=== PATIENT | female | born 1965 | race Caucasian/White ===

== ENCOUNTER 2025-06-08 12:23 | Emergency (ER) | payer OTHER ==
[~2025-06-08] VITALS: Ht 172.7 cm; Wt 78.0 kg
[2025-06-08 12:33] VITALS: TEMP 96.3
--- NOTE | 2025-06-08 12:33 | Physician Documentation ---
History of Present Illness ~ Stated Complaint: CHEST TIGHTNESS Time Seen by MD: 13:07 [facility] 60 year old female with a history of hypertension and anxiety who presents to the emergency department today for chest pain. She reports this radiates into the left shoulder, but denies nausea, vomiting, diaphoresis. Denies dyspnea, but "I'm more aware of my breathing." Does appear anxious on initial exam. Medication Reconciliation Allergies: Coded Allergies: No Known Allergies (Unverified , 06/08/25) Scheduled Omeprazole (Prilosec), 1 CAP PO DAILY Review of Systems ROS As stated above in the HPI, otherwise all systems are reviewed and negative. Physical Exam Physical Exam General: Alert, appears anxious. HEENT: PERRL, EOMI, no injection, moist mucous membranes. Neck: Full range of motion. Respiratory: Lungs clear, no respiratory distress. Chest: No accessory muscle use. Cardiovascular: Regular rate and rhythm, no murmurs. Gastrointestinal: Soft, nontender, nondistended. Bowels sounds present. Extremities: Normal range of motion, no deformity. Neurologic: Oriented x4. Psychiatric: Normal mood and affect. Skin: Normal color, warm and dry. No edema, no ecchymosis. Progress Progress Note 1410: Re-evaluation. Patient reports feeling somewhat better, but does note that she has persistent burning and tightness in her throat. GI cocktail ordered. Discussed waiting for 2nd trop, 1st was negative. Patient agreeable. 1615: Final reevaluation after three negative trops and GI cocktail. Patient reports further improvement and is comfortable with d/c plan to see PCP and request cardiac referral for further evaluation. Results/Orders Results/Orders Orders - BRIANA AUGUSTIN EARRING [employer]ER Chest,Single View (06/08/25 12:26) Completed Orders - BRIANA AUGUSTIN [employer]ING [employer] Cbc/Diff (06/08/25 12:26) MG (06/08/25 12:26) PBNP (06/08/25 12:26) Chest,Single View (06/08/25 12:26) Electrocardiogram (06/08/25 12:26) BMP (06/08/25 12:26) Hs Troponin I W Calculations (06/08/25 12:26) Hs Troponin I W Calculations (06/08/25 14:26) Hs Troponin I W Calculations (06/08/25 15:26) Lorazepam Tablet (Ativan Tablet) (06/08/25 13:10) Lidocaine 2% Viscous (Xylocaine 2% Visco (06/08/25 14:20) Mag & Alum Hydrox/Simeth Susp (Maalox Or (06/08/25 14:20) Lidocaine 2% Viscous (Xylocaine 2% Visco (06/08/25 14:20) Medications Received in ER Medications (Trade) Dose Ordered Sig/Nilsa Route PRN Reason Start Time Stop Time Status Last Admin Dose Admin (Ativan tablet) 1 mg ONCE ONCE PO 06/08/25 13:10 06/08/25 13:11 DC 06/08/25 13:33 1 MG (Maalox oral suspension) 30 ml ONCE ONCE PO 06/08/25 14:20 06/08/25 14:21 DC 06/08/25 14:38 30 ML (Xylocaine 2% Viscous 15mL cup) 15 ml ONCE ONCE MM 06/08/25 14:20 06/08/25 14:21 DC 06/08/25 14:38 15 ML Vital Signs 06/08/25 06/08/25 06/08/25 06/08/25 12:33 13:01 13:33 14:11 Temp 96.3 Pulse 87 79 Resp 15 15 19 B/P (MAP) 163/97 146/89 (108) Pulse Ox 98 94 06/08/25 14:41 Pulse 75 Resp 20 B/P (MAP) 120/67 (84) Pulse Ox 94 Laboratory Tests Test 06/08/25 12:31 06/08/25 14:37 06/08/25 15:30 White Blood Count 10.4 Red Blood Count 4.34 Hemoglobin 14.3 Hematocrit 40.6 Mean Corpuscular Volume 93.7 Mean Corpuscular Hemoglobin 33.0 H Mean Corpuscular Hemoglobin Concent 35.2 Red Cell Distribution Width 14.4 Platelet Count 253 Mean Platelet Volume 7.7 Neutrophils (%) (Auto) 80.3 H Lymphocytes (%) (Auto) 11.9 L Monocytes (%) (Auto) 7.2 Eosinophils (%) (Auto) 0.2 Basophils (%) (Auto) 0.4 Neutrophils # (Auto) 8.3 H Lymphocytes # (Auto) 1.2 Monocytes # (Auto) 0.8 Eosinophils # (Auto) 0.0 Basophils # (Auto) 0.0 CBC Comment Sodium Level 131 L Potassium Level 4.1 Chloride Level 96 L Carbon Dioxide Level 25.2 Anion Gap 10 Blood Urea Nitrogen 12 Creatinine 0.95 H Estimated GFR/1.73 m2 60 BUN/Creatinine Ratio 12.6 Glucose Level 141 H Calcium Level 8.6 Magnesium Level 1.8 Troponin I High Sensitivity 4 4 4 Pro-B-Type Natriuretic Peptide 344 H Albumin 4.0 Chemistry Comments Troponin I High Sens Percent Delta 0 0 Troponin I Hi Sens Absolute Change 0 0 EKG/XRAY/CT/US/VASC/MRI Chest X-Ray : Additional Comments [facility] [address] [facility] [address] DIAGNOSTIC RADIOLOGY Patient: TRISHA JUNE Medical Record: [id number] [facility] : 1965, Age: 60 Sex: Female Location: ER Patient Status: [facility] ER Service Date/Time: 06/08/25/ 1226 Ordering Physician: BRIANA AUGUSTIN NP Exam: CHEST,SINGLE VIEW CHEST RADIOGRAPH Indication: CHEST PAIN Technique: Single frontal view of the chest was obtained COMPARISON: None FINDINGS: Lines and Tubes: None Lungs: Clear Pleura: No effusion. No pneumothorax. Cardiomediastinal contours: Unremarkable Bones: Unremarkable IMPRESSION: No acute disease. Electronically Signed by:RA DENIS MD Date & Time: 06/08/25 1309 Dictated by: RA DENIS MD Dictation date and time: 06/08/25 1248 Primary Care Provider: NO PRIMARY CARE PROVIDER cc: BRIANA AUGUSTIN NP ~ Medical Decision Making Additional information obtaine: N/A Findings No previous visits to this facility. Heart Score: 2 Differential Dx:Considerations: Include: angina, aortic dissection, chest wall pain, cholelithiasis, CHF, costochondritis, esophageal reflux/spasm, gastritis, herpes zoster, myocardial infarction, pericarditis, pleuritis, pancreatitis, pneumonia, pneumothorax, pulmonary embolus Additional Information Most Likely Diagnoses: Musculoskeletal chest wall pain (costochondritis or muscle strain): The left- sided chest pain radiating to the neck and back could represent musculoskeletal pain from costochondritis, which characteristically presents with chest wall tenderness reproducible on palpation over the costal cartilages. The radiation pattern to the neck and back is consistent with referred musculoskeletal pain from cervical or thoracic spine structures. However, patients older than 35 years with chest pain should have cardiac causes excluded before attributing symptoms to musculoskeletal etiologies. Gastroesophageal reflux disease (GERD) or esophageal spasm: GERD characteristically presents as substernal burning sensation rising from the epigastrium toward the neck, and chest pain from GERD may be indistinguishable from cardiac pain. The radiation to the neck fits this pattern. Esophageal spasm can cause severe chest pain that radiates to the back, neck, and arms, mimicking cardiac ischemia. The absence of cardiac disease history makes this a reasonable consideration, though empirical PPI therapy would be needed to support the diagnosis. Cervical radiculopathy or degenerative cervical spondylosis: Mechanical neck pain from degenerative cervical spondylosis may radiate broadly to the shoulders, chest, and back, making the source difficult for patients to pinpoint. The radiation pattern to both the back and neck in this patient is consistent with cervical spine pathology. Cervical radiculopathy pain typically radiates from the shoulder or upper back to the proximal arm, and may be accompanied by painful neck spasms. Anxiety or panic attack: Panic attacks can present with chest pain or discomfort, sensations of shortness of breath, and paresthesias (numbness or tingling sensations). The mild dyspnea without other cardiopulmonary findings could represent anxiety-related symptoms. However, this remains a diagnosis of exclusion after ruling out organic causes, particularly in a 60-year-old patient. Pleuritic pain from viral pleuritis: Viruses including Coxsackieviruses, respiratory syncytial virus, influenza, and others are common causative agents of pleuritic chest pain. The mild dyspnea could accompany viral pleuritis. However, pleuritic pain is typically sharp, stabbing, and clearly worsened by breathing, which should be clarified in the history. Most Important Not to Miss Diagnoses: Acute coronary syndrome (ACS): Rule out with electrocardiography within 10 minutes and serial high-sensitivity troponin measurements. If initial troponin is normal, a second measurement within 1-3 hours can reliably exclude ACS with negative predictive value of approximately 99%. The radiation to the neck and back, combined with dyspnea, could represent atypical anginal equivalents. Women may present with atypical symptoms more frequently than men. Given the patient's age of 60 years and the presence of chest pain, cardiac evaluation is mandatory regardless of the absence of prior cardiac disease history. Aortic dissection: Rule out with aortic dissection risk scoring systems (e.g., aortic dissection detection risk score) combined with D-dimer. If clinical suspicion remains elevated, obtain CT angiography of the chest (preferred), transesophageal echocardiography, or MRI. The classic presentation includes sudden-onset severe chest pain radiating to the back, which fits this patient's symptom pattern. While a plain chest radiograph may show suggestive findings, it is neither sufficiently sensitive nor specific to be diagnostic. Integrating a low aortic dissection risk score and a low D-dimer (<500 ng/mL) may be a useful strategy to exclude the diagnosis. Pulmonary embolism (PE): Rule out with validated clinical decision rules (Wells score, PERC rule, or YEARS algorithm) to guide D-dimer testing, followed by CT pulmonary angiography if indicated. PE is the most common serious cause of pleuritic chest pain, found in 5-21% of patients presenting to emergency departments with pleuritic pain. The mild dyspnea raises concern for PE. Imaging can be avoided in patients with low clinical probability scores and D-dimer below preset cutoffs, but those with elevated scores or D-dimer require definitive imaging. Pneumothorax: Rule out with chest radiography (PA and lateral views) and consider [id number] ultrasound. Spontaneous pneumothorax can present with sudden chest pain and dyspnea, though the radiation to the neck and back would be atypical. The absence of significant dyspnea makes large pneumothorax less likely, but small pneumothoraces can present with minimal symptoms. Pericarditis: Rule out with electrocardiography looking for characteristic findings (diffuse ST-segment elevation with IL depression) and inflammatory markers (ESR, CRP). Echocardiography should be obtained if pericardial effusion is suspected. Pericarditis typically presents with sharp, pleuritic chest pain that is worse when supine and relieved by sitting up or leaning forward. The diagnosis requires chest pain plus at least one additional finding: friction rub, ECG changes, elevated inflammatory markers, or pericardial effusion. Departure Time of Disposition: 16:12 Disposition: 01 HOME / SELF CARE / HOMELESS Impression: Primary Impression: Chest pain Additional Impressions: Anxiety GERD (gastroesophageal reflux disease) Condition: Stable Discharge Instructions: Gastritis, Adult, Managing Anxiety, Adult, Nonspecific Chest Pain, Adult Additional Instructions: Normal EKG and troponins, which indicate a normal cardiac workup. Try the omeprazole 40 mg daily x 3 weeks. See your primary care to discuss your possible acid reflux disease and also anxiety issues. Please return if worse. Referrals: NO PRIMARY CARE PROVIDER (PCP) Prescriptions Omeprazole (Prilosec) 40 Mg Capsule 1 CAP PO DAILY for 30 Days, #30 CAP Prov: BRIANA AUGUSTIN NP 06/08/25 Education Educated: Patient Educated regarding: diagnosis, treatment, prognosis, need for follow up Signature Scribe Signature: x Attestation: The note accurately reflects work and decisions made by me.Briana Seweney NP 06/08/25 12:42 BRIANA AGUUSTIN NP Jun 08, 2025 12:33
[2025-06-08 12:42] LABS: MEAN PLATELET VOLUME 7.7 FL (7.4-10.4); RED CELL DISTRIBUTION WIDTH 14.4 % (11.5-14.5)
[2025-06-08 13:00] LABS: CREATININE 0.95 MG/DL (0.40-0.90); PRO BRAIN NATRIURETIC PEPTIDE 344 PG/ML (0-125); TOTAL CARBON DIOXIDE 25.2 MMOL/L (24-32); eCRCL 64 ML/MIN; eGFR 60 ML/MIN
--- NOTE | 2025-06-08 13:12 | RADIOLOGY REPORT ---
CHEST RADIOGRAPH Indication: CHEST PAIN Technique: Single frontal view of the chest was obtained COMPARISON: None FINDINGS: Lines and Tubes: None Lungs: Clear Pleura: No effusion. No pneumothorax. Cardiomediastinal contours: Unremarkable Bones: Unremarkable IMPRESSION: No acute disease.
--- NOTE | 2025-06-08 13:32 | ELECTROCARDIOGRAPH REPORT ---
[facility] Test Date: 2025-06-08 Test Time: 12:32:08 Pat Name: TRISHA JUNE Department: EMERGENCY ROOM Room: Gender: F Dispatch Associate: [place] : 1965 Requested By: ROBIN AUGUSTIN Order Number: [id number] Reading MD: Dr. CELESTINA Hernandez Measurements Intervals [place] Rate: 83 P: 44 MD: 135 QRS: 4 QRSD: 110 T: 8 QT: 384 QTc: 452 Interpretive Statements Sinus rhythm Low voltage, precordial leads RSR' in V1 or V2, right VCD or RVH Baseline wander in lead(s) II,III,V1,V2,V3,V4,V5,V6 Electronically Signed On 06-09-2025 16:52:[address] CELESTINA Hernandez Please click the below link to view image of tracing.
[2025-06-08] MEDS ORDERED: LIDOcaine 2% Viscous 15ml cup MM PRN (14:20)
[2025-06-08] MEDS: mag hydrox/Alum hydrox/simeth 30ml oral suspension PO ONE (14:38)
[2025-06-08] MEDS: LIDOcaine 2% Viscous 15ml cup MM ONE (14:38)
[2025-06-08] MEDS ORDERED: OMEP40CA21 PO (16:15)
[2025-06-08 16:29] VITALS: BP 116/73; PULSE 76; RESP 19; O2SAT 98
== END 2025-06-08 16:32 | disposition home or self-care (01) ==
LOC: ER 12:24
DX: R07.9 Chest pain, unspecified (principal); I10 Essential (primary) hypertension; F41.9 Anxiety disorder, unspecified; K21.9 Gastro-esophageal reflux disease without esophagitis; Z79.899 Other long term (current) drug therapy
CPT/HCPCS: 36415; 71045; 80048; 83735; 83880; 84484; 85025; 93005; 99285